=== PATIENT | male | born 1995 | race Caucasian/White ===

== ENCOUNTER 2017-01-14 14:13 | Emergency (ER) | payer OTHER ==
[~2017-01-14] VITALS: Ht 172.7 cm; Wt 73.1 kg
[2017-01-14 14:23] VITALS: BP 128/86
== END 2017-01-14 16:02 | disposition home or self-care (01) ==
LOC: ED 14:13
DX: S63.502A Unspecified sprain of left wrist, initial encounter (principal); S33.5XXA Sprain of ligaments of lumbar spine, initial encounter; F90.9 Attention-deficit hyperactivity disorder, unspecified type; W10.9XXA Fall (on) (from) unspecified stairs and steps, initial encounter; Y93.89 Activity, other specified; Y92.89 Other specified places as the place of occurrence of the external cause; Y99.8 Other external cause status

== ENCOUNTER 2018-05-02 12:59 | Emergency (ER) | payer OTHER ==
[~2018-05-02] VITALS: Ht 177.8 cm; Wt 89.4 kg
[2018-05-02 13:05] VITALS: Ht 177.8 cm; Wt 89.4 kg
[2018-05-02 14:21] VITALS: BP 140/80
== END 2018-05-02 14:22 | disposition home or self-care (01) ==
LOC: ED 12:59
DX: S93.601A Unspecified sprain of right foot, initial encounter (principal); J45.909 Unspecified asthma, uncomplicated; F90.9 Attention-deficit hyperactivity disorder, unspecified type; W10.8XXA Fall (on) (from) other stairs and steps, initial encounter; Y93.89 Activity, other specified; Y92.89 Other specified places as the place of occurrence of the external cause; Y99.8 Other external cause status
CPT/HCPCS: Q0092